=== PATIENT | male | born 1995 | race Hispanic/Latino ===

== ENCOUNTER 2019-03-15 19:39 | Emergency (ER) | payer OTHER ==
[2019-03-15] MEDS ORDERED: SODIUM CHLORIDE 0.9% 1000ML 1,000 ML IV ONE ×2 (20:09→22:56)
[2019-03-15] MEDS ORDERED: ONDANSETRON HCL 4 MG/2 ML VIAL ONE (20:09)
[2019-03-15 20:16] LABS: BASOPHILS % (AUTO) 0.5 % (0.0-5.0); EOSINOPHILS % (AUTO) 0.4 % (0.0-8.0); LYMPHOCYTES % (AUTO) 31.3 % (21.0-51.0); MEAN CORPUSCULAR HEMOGLOBIN 31.1 pg (27.0-33.0); MEAN CORPUSCULAR HGB CONC 34.5 g/dL (32.0-36.0); MONOCYTES % (AUTO) 10.3 % (3.0-13.0); NEUTROPHILS % (AUTO) 57.5 % (40.0-77.0); NUCLEATED RED BLOOD CELLS 0.1 % (0.0-0.19); PLATELET COUNT (AUTO) 274 K/uL (130-400); RED BLOOD CELL COUNT(AUTO) 5.89 MIL/uL (4.50-6.20); RED CELL DISTRIBUTION WIDTH 13.2 % (11.0-15.5); WHITE BLOOD COUNT (AUTO) 9.9 K/uL (4.8-10.8)
[2019-03-15 20:17] LABS: APPEARANCE,URINE Clear (CLEAR); BILIRUBIN,URINE Negative (NEGATIVE); COLOR,URINE Dark Yellow (YELLOW); GLUCOSE, URINE (UA) Negative (NEGATIVE); KETONES,URINE Trace mg/dL (NEGATIVE); LEUKOCYTE ESTERASE ,URINE Negative (NEGATIVE); NITRATE,URINE Negative (NEGATIVE); OCCULT BLOOD,URINE Negative (NEGATIVE); PH,URINE 5.5 (5.0-8.0); PROTEIN,URINE POS 1+ mg/dL (NEGATIVE)
[2019-03-15 20:26] LABS: BACTERIA,URINE Few /HPF (None Seen); CREATININE 1.5 mg/dL (0.5-1.5); MUCUS,URINE Moderate LPF (None Seen); POTASSIUM 3.2 mmol/L (3.5-5.1); RBC,URINE 0-1 /HPF (0-1); SQUAMOUS EPITHELIAL CELL,UR Rare /HPF (0-2); WBC,URINE 0-1 /HPF (0-1)
[2019-03-15 20:30] LABS: ALBUMIN 4.9 g/dL (3.5-5.0); BILIRUBIN,TOTAL 1.3 mg/dL (0.2-1.0); TOTAL PROTEIN, SERUM 8.2 g/dL (6.0-8.3)
[2019-03-15] MEDS ORDERED: POTASSIUM CHLORIDE 20 MEQ ERTAB PO ONE (22:56)
== END 2019-03-16 00:07 | disposition home or self-care (01) ==
LOC: EDH 19:39
DX: K52.9 Noninfective gastroenteritis and colitis, unspecified (principal); R63.4 Abnormal weight loss
CPT/HCPCS: 36415; 80053; 81001; 82150; 83690; 85025; 96361; 96374; 99285; J2405; J7030 ×2

== ENCOUNTER 2022-01-05 20:30 | Emergency (ER) | payer OTHER ==
[~2022-01-05] VITALS: Ht 180.3 cm; Wt 97.5 kg
[2022-01-05] MEDS ORDERED: ONDANSETRON 4MG INJ IVP ONE (21:00)
[2022-01-05] MEDS ORDERED: MORPHINE 2 MG SYG IVP ONE (21:00)
[2022-01-05] MEDS ORDERED: KETOROLAC 15MG/ML VIAL (15MG/ML) IV ONE (21:00)
[2022-01-05 22:04] VITALS: BP 120/71
[2022-01-05] MEDS ORDERED: IBUP-2070 PO (22:04)
[2022-01-05] MEDS ORDERED: ACET-2079 PO (22:04)
== END 2022-01-05 22:18 | disposition home or self-care (01) ==
LOC: EDH 20:30
DX: S20.212A Contusion of left front wall of thorax, initial encounter (principal); V86.56XA Driver of dirt bike or motor/cross bike injured in nontraffic accident, initial encounter; Y93.89 Activity, other specified; Y92.89 Other specified places as the place of occurrence of the external cause; Y99.8 Other external cause status
CPT/HCPCS: 71101; 96374; 96375; 99285; J1885; J2405

== ENCOUNTER 2022-05-14 11:28 | Emergency (ER) | payer OTHER ==
[~2022-05-14] VITALS: Ht 177.8 cm; Wt 75.3 kg
[~2022-05-14 11:28] MED LIST: ACET-2079 PO; IBUP-2070 PO
[2022-05-14 11:35] VITALS: BP 120/84
[2022-05-14] MEDS ORDERED: IBUPROFEN 800 MG TAB PO ONE (12:00)
[2022-05-14] MEDS ORDERED: OSEL75 PO (13:03)
== END 2022-05-14 13:07 | disposition home or self-care (01) ==
LOC: EDH 11:28
DX: J10.1 Influenza due to other identified influenza virus with other respiratory manifestations (principal); Z98.890 Other specified postprocedural states; Z20.822 Contact with and (suspected) exposure to COVID-19
CPT/HCPCS: 99284; 71045; 87635; 87880; 87804 ×2; C9803